=== PATIENT | female | born 1965 | race Two or more races ===

== ENCOUNTER 2022-01-21 19:29 | Emergency (ER) | payer MEDICAID, OTHER ==
[~2022-01-21] VITALS: Ht 162.6 cm; Wt 81.8 kg
[~2022-01-21 19:29] MED LIST: CITA20TA9
[2022-01-21 20:45] VITALS: BP 134/77
[2022-01-21 23:06] LABS: Urine Bacteria FEW /hpf (None Seen); Urine Blood Negative /uL (Negative); Urine Specific Gravity 1.019 (1.001-1.035); Urine WBC 15 /hpf (0 - 5)
== END 2022-01-22 05:23 | disposition left against medical advice (07) ==
LOC: ER 19:29
DX: R42 Dizziness and giddiness (principal); Z53.21 Procedure and treatment not carried out due to patient leaving prior to being seen by health care provider
CPT/HCPCS: 81001; 82962

== ENCOUNTER 2022-01-22 14:08 | Emergency (ER) | payer MEDICAID ==
[~2022-01-22] VITALS: Ht 162.6 cm; Wt 82.0 kg
[2022-01-22 14:54] LABS: Basophils # (auto) 0.1 10 ^3/uL (0-0.2); Eosinophils # (auto) 0.2 10 ^3/uL (0-0.8); Lymphocytes # (auto) 2.8 10 ^3/uL (0.4-5.4); Neutrophils # (auto) 3.3 10 ^3/uL (1.6-8.6); Red Cell Distribution Width 14.4 % (11.8-14.3)
[2022-01-22 14:56] LABS: Basophils % (auto) 1.5 % (0.0-2.0); Eosinophils % (auto) 2.8 % (0.0-7.0); Hemoglobin 14.7 g/dL (12.2-16.2); Mean Corpuscular Hemoglobin 27.1 pg (28.0-32.0); Mean Corpuscular Hgb Conc. 32.6 g/dL (32.0-36.0); Mean Corpuscular Volume 83.3 fL (80.0-100.0); Monocytes # (auto) 0.5 10 ^3/uL (0-1.3); Monocytes % (auto) 7.7 % (0.0-12.0); Nucleated Red Blood Cells % 0.2 %; Red Blood Cells 5.41 10^6/uL (4.0-5.20)
[2022-01-22 15:32] LABS: Calcium 9.8 mg/dL (8.5-10.1); Chloride 109 mmol/L (98-107); Potassium 4.2 mmol/L (3.5-5.1); Sodium 143 mmol/L (136-145)
[2022-01-22 15:35] LABS: Albumin 3.9 g/dL (3.4-5.0); Anion Gap 7 (5-15); BUN/Creatinine Ratio 17.2; Blood Alcohol < 3.0 mg/dL (0-5); Blood Urea Nitrogen 15 mg/dL (7-18); Carbon Dioxide 27 mmol/L (21-32); GFR African American 86 mL/min; GFR Non-African American 71 mL/min; Glucose 143 mg/dL (74-106)
[2022-01-22 15:46] LABS: Alanine Aminotransferase 42 U/L (13-56); Alkaline Phosphatase 68 U/L (45-117); Aspartate Aminotransferase 24 U/L (15-37); Bilirubin, Total 0.4 mg/dL (0.2-1.0); Total Protein 7.2 g/dL (6.4-8.2)
[2022-01-22 20:10] VITALS: BP 161/79
== END 2022-01-22 20:18 | disposition home or self-care (01) ==
LOC: ER 14:08
DX: G45.9 Transient cerebral ischemic attack, unspecified (principal); J45.909 Unspecified asthma, uncomplicated
CPT/HCPCS: 36415; 70450; 71045; 80053; 80320; 83735; 84484; 85025; 93005

== ENCOUNTER 2023-05-06 08:44 | Emergency (ER) | payer MEDICAID ==
[~2023-05-06] VITALS: Ht 160 cm; Wt 80.9 kg
[2023-05-06 09:14] VITALS: BP 175/84; PULSE 114; RESP 16; TEMP 98.5; O2SAT 95
[2023-05-06] MEDS ORDERED: ONDANSETRON ODT 4 MG TAB ONE (10:05)
[2023-05-06] MEDS ORDERED: ONDANSETRON ODT 4 MG TAB PO ONE (10:15)
[2023-05-06 10:40] LABS: Urine Bacteria NONE SEEN /hpf (None Seen); Urine Blood 1+ /uL (Negative); Urine Clarity Clear (Clear); Urine Color Yellow (Yellow); Urine Hyaline Cast FEW /lpf (0 - 2); Urine Mucus FEW (None Seen); Urine Protein, UAD 2+ (Negative); Urine Specific Gravity 1.023 (1.001-1.035); Urine Urobilinogen Normal (Negative); Urine WBC 17 /hpf (0 - 5)
[2023-05-06] MEDS ORDERED: BACDST PO (10:59)
[2023-05-06] MEDS ORDERED: PHEN-922 PO (10:59)
[2023-05-06] MEDS ORDERED: cefTRIAXone SOD 1,000 MG VL IM ONE (11:00)
[2023-05-06] MEDS ORDERED: cefTRIAXone SOD 1,000 MG VL ONE (11:01)
[2023-05-06] MEDS ORDERED: LIDOCAINE 1% HCL (LOCAL ANESTH.) INJ 20ML MDV ONE (11:07)
[2023-05-06] MEDS ORDERED: LIDOCAINE 1% HCL (LOCAL ANESTH.) INJ 20ML MDV IJ ONE (11:15)
== END 2023-05-06 11:12 | disposition home or self-care (01) ==
LOC: ER 08:44
DX: N39.0 Urinary tract infection, site not specified (principal); E11.9 Type 2 diabetes mellitus without complications; E78.5 Hyperlipidemia, unspecified; J45.909 Unspecified asthma, uncomplicated; Z79.899 Other long term (current) drug therapy; Z88.1 Allergy status to other antibiotic agents
CPT/HCPCS: 81001; 96372; 99283; J0696; J2001; Q0162

== ENCOUNTER 2023-12-20 23:19 | Emergency (ER) | payer MEDICAID ==
[~2023-12-20] VITALS: Ht 160 cm; Wt 77.3 kg
[~2023-12-20 23:19] MED LIST changes: +BACDST PO; +PHEN-922 PO
[2023-12-20 23:37] LABS: Basophils # (auto) 0.1 10 ^3/uL (0-0.2); Basophils % (auto) 0.9 % (0.0-2.0); Eosinophils # (auto) 0.2 10 ^3/uL (0-0.8); Eosinophils % (auto) 2.2 % (0.0-7.0); Hematocrit 44.3 % (36.0-46.0); Lymphocytes # (auto) 3.2 10 ^3/uL (0.4-5.4); Lymphocytes % (auto) 38.3 % (10.0-50.0); Mean Corpuscular Hemoglobin 28.4 pg (28.0-32.0); Mean Corpuscular Hgb Conc. 33.8 g/dL (32.0-36.0); Monocytes # (auto) 0.9 10 ^3/uL (0-1.3); Neutrophils % (auto) 47.6 % (37.0-80.0); Red Blood Cells 5.27 10^6/uL (4.0-5.20); Red Cell Distribution Width 13.9 % (11.8-14.3); White Blood Cell 8.3 10^3/uL (4.4-10.8)
[2023-12-20 23:53] VITALS: TEMP 98.8
[2023-12-20 23:54] VITALS: PULSE 108; RESP 19; O2SAT 94
[2023-12-20 23:58] LABS: Alanine Aminotransferase 31 U/L (7-40); Albumin 4.3 g/dL (3.2-4.8); Alkaline Phosphatase 67 U/L (46-116); Anion Gap 8 (5-15); Aspartate Aminotransferase 18 U/L (13-40); BUN/Creatinine Ratio 19.5 (10.0-20.0); Blood Urea Nitrogen 16 mg/dL (9-23); Calcium 9.8 mg/dL (8.7-10.4); Carbon Dioxide 27 mmol/L (20-30); Chloride 106 mmol/L (98-107); Glucose 104 mg/dL (74-106); Potassium 3.5 mmol/L (3.5-5.1); Sodium 141 mmol/L (136-145)
[2023-12-20 23:59] LABS: Bilirubin, Total 0.4 mg/dL (0.2-1.0)
[2023-12-21] VITALS: BP 154/88; PULSE 105; RESP 16; O2SAT 94
[2023-12-21 00:02] LABS: INR 1.04 (0.9-1.15)
[2023-12-21 00:12] LABS: Partial Thromboplastin Time 25.4 SEC (24.5-34.5)
[2023-12-21] MEDS ORDERED: AUG875T PO (02:06)
== END 2023-12-21 02:53 | disposition home or self-care (01) ==
LOC: ER 23:19 → EDBD 23:19 → ER 12-21 02:16
DX: R04.1 Hemorrhage from throat (principal); J45.909 Unspecified asthma, uncomplicated; E11.9 Type 2 diabetes mellitus without complications; E78.5 Hyperlipidemia, unspecified; Z86.73 Personal history of transient ischemic attack (TIA), and cerebral infarction without residual deficits; Z88.1 Allergy status to other antibiotic agents
CPT/HCPCS: 36415; 71045; 80053; 82962; 85025; 85610; 85730